=== PATIENT | male | born 1955 | race African-American/Black ===

== ENCOUNTER 2020-06-04 15:29 | Inpatient (IN) | payer OTHER, MEDICAID ==
[~2020-06-04] VITALS: Ht 180.3 cm; Wt 72.3 kg
[2020-06-04] MEDS ORDERED: SODIUM CHLORIDE 0.9% 1000ML BAG (SEPSIS BOLUS) IV ONE (16:45)
[2020-06-04 17:50] LABS: BASOPHILS % 0.2 % (0.0-2.0); HEMATOCRIT. 34.8 % (42.0-52.0); HEMOGLOBIN. 11.7 g/dL (14.0-18.0); LYMPHOCYTES % 10.6 % (20.0-50.0); MEAN CORPUSCULAR HEMOGLOBIN 31.1 pg (28.0-32.0); MEAN CORPUSCULAR VOLUME 92.5 fL (80.0-94.0); MEAN PLATELET VOLUME 8.3 fl (7.4-10.4); MONOCYTES % 3.3 % (2.0-8.0); NEUTROPHILS % 85.9 % (40.0-76.0); PLATELET 257 x1000/uL (130-400); RED BLOOD CELL COUNT 3.77 mill/uL (4.7-6.1); RED CELL DISTRIBUTION WIDTH 13.3 % (11.6-14.6)
[2020-06-04 17:52] LABS: CLARITY URINE CLEAR (CLEAR); COLOR URINE YELLOW (YELLOW); KETONES URINE 1+ (NEGATIVE); LEUKOCYTE ESTERASE URINE NEGATIVE (NEGATIVE); NITRITE URINE NEGATIVE (NEGATIVE); OCCULT BLOOD URINE 2+ (NEGATIVE); PH URINE 6.5 (4.5-8.0); PROTEIN URINE 2+ (NEGATIVE); SPECIFIC GRAVITY URINE 1.018 (1.005-1.030); UROBILINOGEN URINE 0.2 E.U./dL (0.2-1.0)
[2020-06-04 17:55] LABS: CHLORIDE 109 mEq/L (98-107)
[2020-06-04 18:07] LABS: PROTHROMBIN TIME 10.7 sec (9.6-11.0)
[2020-06-04] MEDS ORDERED: MAGNESIUM HYDROXIDE 400MG/5ML 30ML UDC PO PRN (23:00)
[2020-06-04] MEDS ORDERED: GUAIFENESIN 200MG/10ML SUGAR FREE UDC PO PRN (23:00)
[2020-06-04] MEDS ORDERED: ZOLPIDEM TARTRATE 5MG TABLET PO PRN (23:00)
[2020-06-04] MEDS: CLONAZEPAM 1MG TABLET PO SCH (23:00)
[2020-06-04] MEDS ORDERED: DIPHENHYDRAMINE 50MG/ML VIAL IV PRN (23:00)
[2020-06-04] MEDS ORDERED: ACETAMINOPHEN 325MG TABLET PO PRN ×2 (23:00)
[2020-06-04] MEDS ORDERED: ONDANSETRON HCL 4MG/2ML INJ IV PRN (23:00)
[2020-06-05] MEDS ORDERED: INSULIN GLARGINE UD 100 UNITS/ML SYR SUBCUT SCH
[2020-06-05] MEDS: HYDRALAZINE 20MG/ML VIAL IV PRN
[2020-06-05 01:15] VITALS: BP 150/81
[2020-06-05] MEDS: SODIUM CHLORIDE 0.9% 1,000 ML IV SCH ×3 (01:56→17:58)
[2020-06-05 04:00] VITALS: BP 134/79
[2020-06-05] MEDS: BLOOD SUGAR DIAGNOSTIC STRIP TEST SCH ×4 (07:40→21:11)
[2020-06-05 08:00] VITALS: BP 101/62
[2020-06-05 08:14] LABS: BASOPHILS % 0.5 % (0.0-2.0); EOSINOPHILS % 0.1 % (0.0-5.0); HEMATOCRIT. 34.2 % (42.0-52.0); HEMOGLOBIN. 11.5 g/dL (14.0-18.0); LYMPHOCYTES % 14.5 % (20.0-50.0); MEAN CORPUSCULAR VOLUME 91.6 fL (80.0-94.0); MEAN PLATELET VOLUME 7.7 fl (7.4-10.4); NEUTROPHILS % 80.9 % (40.0-76.0); PLATELET 246 x1000/uL (130-400); RED BLOOD CELL COUNT 3.73 mill/uL (4.7-6.1)
[2020-06-05 08:47] LABS: CHLORIDE 113 mEq/L (98-107)
[2020-06-05 08:53] LABS: PHOSPHORUS 2.3 mg/dL (2.5-4.9)
[2020-06-05] MEDS: INSULIN LISPRO 100 UNITS/ML SUBCUT SCH ×4 (09:14→21:32)
[2020-06-05] MEDS: LOSARTAN POTASSIUM 100 MG TABLET PO SCH (09:45)
[2020-06-05] MEDS: AMLODIPINE 10MG TABLET PO SCH (09:46)
[2020-06-05] MEDS ORDERED: POTASSIUM PHOS,M-BASIC-D-BASIC 15 MMOL in DEXT 5% WATER 245 ML IV NR (11:30)
[2020-06-05 12:00] VITALS: BP 124/78
[2020-06-05] MEDS: NICOTINE 21MG PATCH TD SCH (13:26)
[2020-06-05 16:00] VITALS: BP 133/86
[2020-06-05 20:00] VITALS: BP 156/89
[2020-06-05] MEDS: CLONAZEPAM 1MG TABLET PO SCH (21:10)
[2020-06-05] MEDS: FAMOTIDINE 20MG TABLET PO SCH (21:10)
[2020-06-05] MEDS: INSULIN GLARGINE UD 100 UNITS/ML SYR SUBCUT SCH (23:07)
[2020-06-06] VITALS: BP 150/91
[2020-06-06 04:00] VITALS: BP 149/89
[2020-06-06] MEDS: SODIUM CHLORIDE 0.9% 1,000 ML IV SCH ×2 (06:43→14:38)
[2020-06-06] MEDS: INSULIN LISPRO 100 UNITS/ML SUBCUT SCH ×4 (07:15→22:24)
[2020-06-06] MEDS: DEXTROSE 50% WATER 50ML SYRINGE IV PRN (07:23)
[2020-06-06] MEDS: BLOOD SUGAR DIAGNOSTIC STRIP TEST SCH ×4 (07:25→21:41)
[2020-06-06 08:00] VITALS: BP 153/94
[2020-06-06] MEDS: LOSARTAN POTASSIUM 100 MG TABLET PO SCH (10:36)
[2020-06-06] MEDS: AMLODIPINE 10MG TABLET PO SCH (10:37)
[2020-06-06] MEDS: NICOTINE 21MG PATCH TD SCH (10:37)
[2020-06-06 12:00] VITALS: BP 145/96
[2020-06-06 16:00] VITALS: BP 148/87
[2020-06-06 20:27] VITALS: BP 117/81
[2020-06-06] MEDS: FAMOTIDINE 20MG TABLET PO SCH (21:40)
[2020-06-06] MEDS: CLONAZEPAM 1MG TABLET PO SCH (21:41)
[2020-06-06] MEDS: INSULIN GLARGINE UD 100 UNITS/ML SYR SUBCUT SCH (22:25)
[2020-06-07] VITALS (9 sets, daily range): BP systolic 105–203; BP diastolic 58–124
[2020-06-07] MEDS: LORAZEPAM 2MG/ML CPJ IV PRN ×3 (04:33→14:27)
[2020-06-07] MEDS: BLOOD SUGAR DIAGNOSTIC STRIP TEST SCH ×4 (06:45→21:17)
[2020-06-07] MEDS: INSULIN LISPRO 100 UNITS/ML SUBCUT SCH ×4 (07:15→21:00)
[2020-06-07] MEDS: LOSARTAN POTASSIUM 100 MG TABLET PO SCH (09:30)
[2020-06-07] MEDS: AMLODIPINE 10MG TABLET PO SCH (09:31)
[2020-06-07] MEDS: NICOTINE 21MG PATCH TD SCH (09:31)
[2020-06-07] MEDS: CLONIDINE 0.1MG TABLET PO PRN ×2 (12:02→18:13)
[2020-06-07] MEDS: DEXTROSE 50% WATER 50ML SYRINGE IV PRN ×2 (12:02→17:04)
[2020-06-07] MEDS: SODIUM CHLORIDE 0.9% 1,000 ML IV SCH (18:13)
[2020-06-07] MEDS: HYDRALAZINE 20MG/ML VIAL IV PRN (18:49)
[2020-06-07] MEDS: CLONAZEPAM 1MG TABLET PO SCH (21:16)
[2020-06-07] MEDS: QUETIAPINE FUMARATE 50MG TABLET PO SCH (21:16)
[2020-06-07] MEDS: FAMOTIDINE 20MG TABLET PO SCH (21:16)
[2020-06-07] MEDS ORDERED: INSULIN GLARGINE UD 100 UNITS/ML SYR SUBCUT SCH (22:00)
[2020-06-08] VITALS: BP 154/93
[2020-06-08] MEDS: SODIUM CHLORIDE 0.9% 1,000 ML IV SCH (03:32)
[2020-06-08 04:00] VITALS: BP 158/90
[2020-06-08] MEDS: BLOOD SUGAR DIAGNOSTIC STRIP TEST SCH ×4 (06:13→21:34)
[2020-06-08] MEDS: INSULIN LISPRO 100 UNITS/ML SUBCUT SCH ×4 (06:13→21:49)
[2020-06-08] MEDS: DEXTROSE 50% WATER 50ML SYRINGE IV PRN (06:13)
[2020-06-08 07:02] LABS: BASOPHILS % 0.3 % (0.0-2.0); EOSINOPHILS % 3.1 % (0.0-5.0); HEMATOCRIT. 31.5 % (42.0-52.0); HEMOGLOBIN. 10.8 g/dL (14.0-18.0); LYMPHOCYTES % 21.5 % (20.0-50.0); MEAN CORPUSCULAR HEMOGLOBIN 31.2 pg (28.0-32.0); MEAN CORPUSCULAR VOLUME 90.9 fL (80.0-94.0); MEAN PLATELET VOLUME 7.8 fl (7.4-10.4); MONOCYTES % 3.4 % (2.0-8.0); NEUTROPHILS % 71.7 % (40.0-76.0); PLATELET 192 x1000/uL (130-400); RED BLOOD CELL COUNT 3.46 mill/uL (4.7-6.1); RED CELL DISTRIBUTION WIDTH 12.9 % (11.6-14.6)
[2020-06-08 07:15] LABS: CHLORIDE 115 mEq/L (98-107)
[2020-06-08 07:25] LABS: PHOSPHORUS 3.6 mg/dL (2.5-4.9)
[2020-06-08 08:00] VITALS: BP 133/87
[2020-06-08] MEDS: AMLODIPINE 10MG TABLET PO SCH (08:25)
[2020-06-08] MEDS: LOSARTAN POTASSIUM 100 MG TABLET PO SCH (08:25)
[2020-06-08] MEDS: NICOTINE 21MG PATCH TD SCH (08:25)
[2020-06-08] MEDS: QUETIAPINE FUMARATE 50MG TABLET PO SCH ×2 (08:25→21:34)
[2020-06-08] MEDS ORDERED: POTASSIUM CHLORIDE 20MEQ TABLET SR PO NR (10:15)
[2020-06-08] MEDS ORDERED: MAGNESIUM 1 G PREMIX 100 ML IV NR (11:00)
[2020-06-08 12:00] VITALS: BP 129/81
[2020-06-08 16:29] VITALS: BP 131/86
[2020-06-08] MEDS: DOCUSATE SODIUM 100MG CAPSULE PO SCH (17:45)
[2020-06-08 20:00] VITALS: BP 166/95
[2020-06-08] MEDS: CLONAZEPAM 1MG TABLET PO SCH (21:34)
[2020-06-08] MEDS: FAMOTIDINE 20MG TABLET PO SCH (21:34)
[2020-06-08] MEDS ORDERED: INSULIN GLARGINE UD 100 UNITS/ML SYR SUBCUT SCH (22:00)
[2020-06-09] VITALS: BP 167/72
[2020-06-09] MEDS: HYDRALAZINE 20MG/ML VIAL IV PRN (00:12)
[2020-06-09 04:00] VITALS: BP 131/82
[2020-06-09] MEDS: BLOOD SUGAR DIAGNOSTIC STRIP TEST SCH ×2 (06:27→11:47)
[2020-06-09] MEDS: INSULIN LISPRO 100 UNITS/ML SUBCUT SCH ×2 (06:31→11:48)
[2020-06-09 08:00] VITALS: BP 123/95
[2020-06-09] MEDS: LOSARTAN POTASSIUM 100 MG TABLET PO SCH (09:10)
[2020-06-09] MEDS: AMLODIPINE 10MG TABLET PO SCH (09:10)
[2020-06-09] MEDS: QUETIAPINE FUMARATE 50MG TABLET PO SCH (09:10)
[2020-06-09] MEDS: DOCUSATE SODIUM 100MG CAPSULE PO SCH (09:10)
[2020-06-09] MEDS: NICOTINE 21MG PATCH TD SCH (09:10)
[2020-06-09 12:00] VITALS: BP 150/86
[2020-06-09 14:36] VITALS: BP 150/86
== END 2020-06-09 16:50 | disposition home or self-care (01) | DRG 637 ==
LOC: ER 15:29 → EDBEDREQ 20:14 → 7WST 20:29 → EDBEDREQTM 20:30 → EDBEDREQSVC 20:30 → ENRESERV 23:37 → ER 06-05 01:29 → 5WST 06-05 23:20
PROVIDERS: ADMIT Internal Medicine; ATTEND Internal Medicine
DX: E11.65 Type 2 diabetes mellitus with hyperglycemia (principal); N17.0 Acute kidney failure with tubular necrosis; F23 Brief psychotic disorder; R65.10 Systemic inflammatory response syndrome (SIRS) of non-infectious origin without acute organ dysfunction; I10 Essential (primary) hypertension; F17.200 Nicotine dependence, unspecified, uncomplicated; E86.0 Dehydration; F41.1 Generalized anxiety disorder; R50.9 Fever, unspecified; D64.9 Anemia, unspecified; R94.31 Abnormal electrocardiogram [ECG] [EKG]; Z20.828 Contact with and (suspected) exposure to other viral communicable diseases; Z71.6 Tobacco abuse counseling
CPT/HCPCS: 36415; 71045; 80048; 80053; 81003; 82962; 83036; 83605; 83735; 84100; 84145; 84484; 85025; 87804; 93005; 96374; 99285; J0360; J1200; J1815; J2060; J3475; J3490; J7030; J7060; U0003-CS